=== PATIENT | female | born 1940 | race Caucasian/White ===

== ENCOUNTER 2019-10-31 09:20 | Inpatient (IN) ==
[2019-10-31] MEDS ORDERED: PANTOPRAZOLE 40 MG VIAL IV STA (09:46)
[2019-10-31] MEDS ORDERED: ONDANSETRON 4 MG/2 ML VIAL IV STA (09:46)
[2019-10-31] MEDS ORDERED: SODIUM CHLORIDE 0.9% 500 ML IV STA (09:46)
[2019-10-31] MEDS ORDERED: DICYCLOMINE 20 MG/2 ML AMP IM ONE (09:50)
[2019-10-31] MEDS ORDERED: METOCLOPRAMIDE 10 MG/2 ML VIAL IV STA (09:50)
[2019-10-31 09:57] LABS: Basophils # 0.1 10*3/uL (0.0-0.2); Basophils % 0.9 % (0.0-0.8); Eosinophils # 0.5 10*3/uL (0.0-0.87); Eosinophils % 6.8 % (0.00-10.9); Hematocrit 36.8 VOL% (35.7-47.0); Hemoglobin 11.7 GM/DL (12.0-16.0); Immature Granulocytes % 0.6 %; Immature Granulocytes Absolute 0.04 #; Lymphocytes % 28.6 % (21.3-54.2); Mean Corpuscular HGB Conc 31.8 GM/DL (32-36); Mean Corpuscular Volume 91.8 FL (87-102); Mean Platelet Volume 10.5 FL (9.6-12.0); Monocytes % 9.9 % (1.7-12.7); Neutrophils % 53.2 % (38.7-73.9); Platelet Count 297 T/CUMM (130-400); Red Blood Count 4.01 MC/CUMM (3.8-5.5); Red Cell Distribution Width 14.4 % (9.3-17.3); White Blood Count 6.9 T/CUMM (4-12)
[2019-10-31 10:10] LABS: INR 1.2; PT Patient Result 12.4 SECS (9.8-11.9); Partial Thromboplastin Time 25.5 SECS (23.9-33.8)
[2019-10-31 10:30] LABS: Alanine Aminotransferase 23 U/L (13-56); Albumin 3.5 G/DL (3.4-5.0); Alkaline Phosphatase 39 U/L (45-117); Amylase 737 U/L (25-115); Aspartate Amino Transferase 16 U/L (0-37); Blood Urea Nitrogen 23 MG/DL (7-18); Calcium 9.2 MG/DL (8.5-10.1); Estimated Glom Filtration Rate 57 ML/MIN; Ferritin 125.1 ng/ml (8-252); Glucose 179 MG/DL (74-106); Osmolality,Calculated 277.1 MOS/KG (273-304); Total Protein 7.3 G/DL (6.4-8.3); Troponin I < 0.015 NG/ML (0.00-0.045)
[2019-10-31 10:54] LABS: Apearance,Urine CLEAR (Clear); Bilirubin,Urine Negative (Negative); Blood, Urine Negative (Negative); Glucose,Urine (UA) Negative (Negative); Ketones,Urine Negative (Negative); Mucus,Urine Occasional /LPF (Occasional); Nitrite,Urine Negative (Negative); Protein,Urine Negative; RBC,Urine <1 /HPF (0-4); Urine Color Straw (Yellow); Urine Specific Gravity 1.011 (1.001-1.035); Urine Urobilinogen < 2.0 EU/DL (0.2-1.0)
[2019-10-31] MEDS ORDERED: DEXTROSE 50% 25 GM/50 ML VIAL IV PRN ×2 (11:03→21:08)
[2019-10-31] MEDS ORDERED: ONDANSETRON 4 MG/2 ML VIAL IV PRN (11:03)
[2019-10-31] MEDS ORDERED: GLUCAGON 1 MG VIAL IM PRN ×2 (11:03→21:08)
[2019-10-31] MEDS ORDERED: fentaNYL 100 MCG/2 ML VIAL IV PRN (11:08)
[2019-10-31] MEDS ORDERED: METOCLOPRAMIDE 10 MG/2 ML VIAL IV SCH (12:00)
[2019-10-31] MEDS: DEXTROSE 5% NACL 0.45% 1,000 ML IV SCH (13:07)
[2019-10-31] MEDS: INSULIN REGULAR 100 UNIT/ML SUBCUT SCH ×4 (13:14→21:24)
[2019-10-31 13:35] LABS: Calcium 8.8 MG/DL (8.5-10.1); Osmolality,Calculated 278.8 MOS/KG (273-304)
[2019-10-31] MEDS ORDERED: DENOSUMAB 60 MG/ML SYRINGE SUBCUT SCH (15:04)
[2019-10-31] MEDS ORDERED: MAGNESIUM SULF RIDER 2 GM in PREMIX 1 EACH IV ONE (15:46)
[2019-10-31] MEDS: METOCLOPRAMIDE 10 MG/2 ML VIAL IV SCH ×2 (16:30→21:33)
[2019-10-31] MEDS ORDERED: DOCUSATE SODIUM 100 MG CAPSULE PO PRN (21:12)
[2019-10-31] MEDS: INSULIN GLARGINE 100 UNIT/ML SUBCUT SCH (21:23)
[2019-10-31] MEDS: METOPROLOL TARTRATE 25 MG TABLET PO SCH (21:33)
[2019-10-31] MEDS: cefTRIAXone 500 MG in SYRINGE 1 EACH IV SCH (21:33)
[2019-11-01] MEDS: DEXTROSE 5% NACL 0.45% 1,000 ML IV SCH ×2 (00:02→07:38)
[2019-11-01] MEDS: METOCLOPRAMIDE 10 MG/2 ML VIAL IV SCH ×4 (03:55→21:31)
[2019-11-01 04:59] LABS: Basophils # 0.1 10*3/uL (0.0-0.2); Basophils % 0.7 % (0.0-0.8); Eosinophils # 0.6 10*3/uL (0.0-0.87); Eosinophils % 7.5 % (0.00-10.9); Hematocrit 33.4 VOL% (35.7-47.0); Hemoglobin 10.3 GM/DL (12.0-16.0); Immature Granulocytes Absolute 0.07 #; Lymphocytes # 1.8 10*3/uL (1.4-4.0); Lymphocytes % 24.1 % (21.3-54.2); Mean Corpuscular HGB Conc 30.8 GM/DL (32-36); Mean Corpuscular Volume 93.3 FL (87-102); Mean Platelet Volume 10.6 FL (9.6-12.0); Monocytes % 10.6 % (1.7-12.7); Neutrophils % 56.1 % (38.7-73.9); Platelet Count 265 T/CUMM (130-400); Red Blood Count 3.58 MC/CUMM (3.8-5.5); Red Cell Distribution Width 14.4 % (9.3-17.3); White Blood Count 7.3 T/CUMM (4-12)
[2019-11-01 05:32] LABS: Calcium 8.4 MG/DL (8.5-10.1); Osmolality,Calculated 274.1 MOS/KG (273-304)
[2019-11-01] MEDS: INSULIN REGULAR 100 UNIT/ML SUBCUT SCH ×3 (08:06→15:58)
[2019-11-01] MEDS: METOPROLOL TARTRATE 25 MG TABLET PO SCH ×2 (08:29→21:28)
[2019-11-01] MEDS: TIMOLOL 0.5% OPH SOLN 5 ML BOTTLE BOTH EYES SCH (08:29)
[2019-11-01] MEDS: SOLIFENACIN 5 MG TABLET PO SCH (08:30)
[2019-11-01] MEDS: ASPIRIN EC 81 MG TABLET PO SCH (08:30)
[2019-11-01] MEDS: PANTOPRAZOLE 40 MG VIAL IV SCH (08:40)
[2019-11-01] MEDS: methylPREDNISolone SOD SUC 40 MG/1 ML VIAL IV SCH ×2 (09:58→21:29)
[2019-11-01] MEDS: SODIUM CHLORIDE 0.9% 1,000 ML IV SCH ×2 (09:59→19:08)
[2019-11-01 15:15] LABS: Risk Ratio 3.58; VLDL CHOLESTEROL 21.2 MG/DL
[2019-11-01] MEDS: INSULIN GLARGINE 100 UNIT/ML SUBCUT SCH (21:28)
[2019-11-01] MEDS: cefTRIAXone 500 MG in SYRINGE 1 EACH IV SCH (21:32)
[2019-11-02] MEDS: SODIUM CHLORIDE 0.9% 1,000 ML IV SCH ×3 (02:47→16:39)
[2019-11-02 05:03] LABS: Basophils # 0.1 10*3/uL (0.0-0.2); Basophils % 0.6 % (0.0-0.8); Eosinophils # 0.1 10*3/uL (0.0-0.87); Eosinophils % 0.6 % (0.00-10.9); Hematocrit 34.2 VOL% (35.7-47.0); Hemoglobin 10.7 GM/DL (12.0-16.0); Immature Granulocytes % 0.4 %; Immature Granulocytes Absolute 0.04 #; Lymphocytes # 1.6 10*3/uL (1.4-4.0); Lymphocytes % 16.6 % (21.3-54.2); Mean Corpuscular HGB Conc 31.3 GM/DL (32-36); Mean Corpuscular Volume 92.9 FL (87-102); Mean Platelet Volume 10.8 FL (9.6-12.0); Monocytes % 6.6 % (1.7-12.7); Neutrophils % 75.2 % (38.7-73.9); Platelet Count 292 T/CUMM (130-400); Red Blood Count 3.68 MC/CUMM (3.8-5.5); Red Cell Distribution Width 14.4 % (9.3-17.3); White Blood Count 9.7 T/CUMM (4-12)
[2019-11-02] MEDS: METOCLOPRAMIDE 10 MG/2 ML VIAL IV SCH ×3 (05:27→15:32)
[2019-11-02 05:32] LABS: Calcium 8.6 MG/DL (8.5-10.1); Osmolality,Calculated 281.7 MOS/KG (273-304)
[2019-11-02] MEDS: ASPIRIN EC 81 MG TABLET PO SCH (08:21)
[2019-11-02] MEDS: INSULIN REGULAR 100 UNIT/ML SUBCUT SCH ×3 (08:21→16:38)
[2019-11-02] MEDS: METOPROLOL TARTRATE 25 MG TABLET PO SCH (08:21)
[2019-11-02] MEDS: SOLIFENACIN 5 MG TABLET PO SCH (08:22)
[2019-11-02] MEDS: TIMOLOL 0.5% OPH SOLN 5 ML BOTTLE BOTH EYES SCH (08:26)
[2019-11-02] MEDS: methylPREDNISolone SOD SUC 40 MG/1 ML VIAL IV SCH (08:27)
[2019-11-02] MEDS: PANTOPRAZOLE 40 MG VIAL IV SCH (08:27)
[2019-11-02] MEDS ORDERED: POTASSIUM CHLORIDE 20 MEQ TABLET PO ONE (14:59)
[2019-11-02] MEDS ORDERED: MAGNESIUM SULF RIDER 2 GM in PREMIX 1 EACH IV ONE (15:00)
[2019-11-02 16:08] VITALS: BP 167/66
[2019-11-03] MEDS ORDERED: GLIMEPIRIDE 2 MG TABLET PO SCH (08:00)
== END 2019-11-02 18:12 | disposition home or self-care (01) | DRG 440 ==
LOC: N.EDINP 09:20 → N.ED 09:20 → N.EDINP 14:57 → N.3E 15:14
PROVIDERS: ADMIT Internal Medicine; ATTEND Internal Medicine

== ENCOUNTER 2021-03-01 12:15 | Inpatient (IN) ==
[2021-03-01] MEDS ORDERED: SODIUM CHLORIDE 0.9% 1,000 ML IV STA (12:40)
[2021-03-01] MEDS ORDERED: hydrALAZINE 20 MG/1 ML VIAL IV STA ×2 (13:12→14:58)
[2021-03-01 13:17] LABS: Basophils % 0.4 % (0.0-0.8); Eosinophils # 0.1 10*3/uL (0.0-0.87); Eosinophils % 0.9 % (0.00-10.9); Hematocrit 41.4 VOL% (35.7-47.0); Hemoglobin 13.7 GM/DL (12.0-16.0); Immature Granulocytes % 0.3 %; Immature Granulocytes Absolute 0.02 #; Lymphocytes # 1.4 10*3/uL (1.4-4.0); Mean Corpuscular HGB Conc 33.1 GM/DL (32-36); Mean Corpuscular Volume 91.6 FL (87-102); Mean Platelet Volume 11.4 FL (9.6-12.0); Monocytes % 6.2 % (1.7-12.7); Neutrophils % 74.2 % (38.7-73.9); Platelet Count 168 T/CUMM (130-400); Red Blood Count 4.52 MC/CUMM (3.8-5.5); Red Cell Distribution Width 14.6 % (9.3-17.3); White Blood Count 7.6 T/CUMM (4-12)
[2021-03-01 13:45] LABS: Albumin 4.1 G/DL (3.4-5.0); Bilirubin,Total 0.5 MG/DL (0.20-1.00); Osmolality,Calculated 282.8 MOS/KG (273-304); Potassium 3.6 MMOL/L (3.5-5.1); Total Protein 7.3 G/DL (6.4-8.2)
[2021-03-01] MEDS ORDERED: MECLIZINE 25 MG TABLET PO STA (14:11)
[2021-03-01] MEDS ORDERED: ONDANSETRON 4 MG/2 ML VIAL ONE (14:20)
[2021-03-01] MEDS ORDERED: ONDANSETRON 4 MG/2 ML VIAL IV STA (14:21)
[2021-03-01] MEDS ORDERED: methylPREDNISolone SOD SUC 40 MG/1 ML VIAL IV STA (15:30)
[2021-03-01] MEDS ORDERED: GLUCAGON 1 MG VIAL IM PRN (15:39)
[2021-03-01] MEDS ORDERED: DEXTROSE 50% 25 GM/50 ML VIAL IV PRN ×2 (15:39→16:08)
[2021-03-01] MEDS ORDERED: ACETAMINOPHEN 325 MG TABLET PO PRN (15:39)
[2021-03-01] MEDS ORDERED: PROMETHAZINE 25 MG/1 ML VIAL IM STA (15:45)
[2021-03-01] MEDS: SODIUM CHLORIDE 0.9% 1,000 ML IV SCH (15:55)
[2021-03-01] MEDS: INSULIN REGULAR 100 UNIT/ML SUBCUT SCH ×2 (17:18→20:44)
[2021-03-01] MEDS: INSULIN GLARGINE 100 UNIT/ML SUBCUT SCH (20:44)
[2021-03-01] MEDS: METOPROLOL TARTRATE 25 MG TABLET PO SCH (20:44)
[2021-03-01] MEDS: GABAPENTIN 300 MG CAPSULE PO SCH (21:00)
[2021-03-01] MEDS: DOCUSATE SODIUM 100 MG CAPSULE PO SCH (21:00)
[2021-03-01] MEDS: glipiZIDE 10 MG TABLET PO SCH (21:00)
[2021-03-01] MEDS: ONDANSETRON 4 MG/2 ML VIAL IV PRN (21:28)
[2021-03-02] MEDS: ONDANSETRON 4 MG/2 ML VIAL IV PRN (04:51)
[2021-03-02] MEDS: SODIUM CHLORIDE 0.9% 1,000 ML IV SCH ×2 (04:51→18:31)
[2021-03-02 05:45] LABS: Calcium 8.2 MG/DL (8.5-10.1); Osmolality,Calculated 285.4 MOS/KG (273-304); Potassium 3.5 MMOL/L (3.5-5.1)
[2021-03-02] MEDS: METOPROLOL TARTRATE 25 MG TABLET PO SCH ×2 (10:57→20:36)
[2021-03-02] MEDS: GABAPENTIN 300 MG CAPSULE PO SCH ×3 (10:59→20:36)
[2021-03-02] MEDS: PANTOPRAZOLE 40 MG TABLET PO SCH (10:59)
[2021-03-02] MEDS: SOLIFENACIN 5 MG TABLET PO SCH (10:59)
[2021-03-02] MEDS: INSULIN REGULAR 100 UNIT/ML SUBCUT SCH ×4 (11:00→20:40)
[2021-03-02] MEDS: DOCUSATE SODIUM 100 MG CAPSULE PO SCH ×2 (11:00→20:40)
[2021-03-02] MEDS: glipiZIDE 10 MG TABLET PO SCH ×2 (11:00→20:35)
[2021-03-02] MEDS: hydrALAZINE 25 MG TABLET PO SCH ×2 (12:23→20:35)
[2021-03-02] MEDS: amLODIPine 5 MG TABLET PO SCH (12:23)
[2021-03-02] MEDS ORDERED: MECLIZINE 25 MG TABLET PO PRN (13:48)
[2021-03-02] MEDS: KETOROLAC 15 MG/1 ML VIAL IV SCH ×2 (14:50→20:35)
[2021-03-02] MEDS: MECLIZINE 25 MG TABLET PO SCH ×2 (14:50→20:36)
[2021-03-02] MEDS: hydrALAZINE 20 MG/1 ML VIAL IV PRN (14:51)
[2021-03-02] MEDS: cefTRIAXone 1,000 MG in SODIUM CHLORIDE 0.9% 100 ML IV SCH (18:31)
[2021-03-02] MEDS: INSULIN GLARGINE 100 UNIT/ML SUBCUT SCH (20:36)
[2021-03-03] MEDS: KETOROLAC 15 MG/1 ML VIAL IV SCH ×4 (02:38→21:03)
[2021-03-03 04:50] LABS: Basophils % 0.4 % (0.0-0.8); Eosinophils % 0.2 % (0.00-10.9); Hematocrit 40.3 VOL% (35.7-47.0); Hemoglobin 13.1 GM/DL (12.0-16.0); Immature Granulocytes % 0.4 %; Immature Granulocytes Absolute 0.04 #; Lymphocytes # 1.8 10*3/uL (1.4-4.0); Lymphocytes % 19.4 % (21.3-54.2); Mean Corpuscular HGB Conc 32.5 GM/DL (32-36); Mean Corpuscular Volume 92.9 FL (87-102); Mean Platelet Volume 12.2 FL (9.6-12.0); Monocytes % 11.5 % (1.7-12.7); Neutrophils % 68.1 % (38.7-73.9); Platelet Count 181 T/CUMM (130-400); Red Blood Count 4.34 MC/CUMM (3.8-5.5); White Blood Count 9.1 T/CUMM (4-12)
[2021-03-03] MEDS: SODIUM CHLORIDE 0.9% 1,000 ML IV SCH ×3 (05:03→18:33)
[2021-03-03 05:46] LABS: Bilirubin,Total 0.5 MG/DL (0.20-1.00); Calcium 8.2 MG/DL (8.5-10.1); Osmolality,Calculated 273.1 MOS/KG (273-304); Potassium 4.1 MMOL/L (3.5-5.1); Total Protein 6.6 G/DL (6.4-8.2)
[2021-03-03] MEDS: INSULIN REGULAR 100 UNIT/ML SUBCUT SCH ×4 (08:59→21:04)
[2021-03-03] MEDS: FENOFIBRATE 160 MG TABLET PO SCH (08:59)
[2021-03-03] MEDS: amLODIPine 5 MG TABLET PO SCH (09:00)
[2021-03-03] MEDS: PANTOPRAZOLE 40 MG TABLET PO SCH (09:00)
[2021-03-03] MEDS: MECLIZINE 25 MG TABLET PO SCH ×3 (09:00→21:01)
[2021-03-03] MEDS: hydrALAZINE 25 MG TABLET PO SCH (09:00)
[2021-03-03] MEDS: POTASSIUM CHLORIDE 20 MEQ TABLET PO SCH (09:00)
[2021-03-03] MEDS: glipiZIDE 10 MG TABLET PO SCH ×2 (09:00→21:02)
[2021-03-03] MEDS: METOPROLOL TARTRATE 25 MG TABLET PO SCH ×2 (09:00→21:02)
[2021-03-03] MEDS: SOLIFENACIN 5 MG TABLET PO SCH (09:00)
[2021-03-03] MEDS: DOCUSATE SODIUM 100 MG CAPSULE PO SCH ×2 (09:00→21:01)
[2021-03-03] MEDS: GABAPENTIN 300 MG CAPSULE PO SCH ×3 (09:00→21:02)
[2021-03-03] MEDS: TIMOLOL 0.5% OPH SOLN 5 ML BOTTLE BOTH EYES SCH (09:45)
[2021-03-03] MEDS: hydrALAZINE 20 MG/1 ML VIAL IV PRN ×2 (09:46→16:04)
[2021-03-03] MEDS: ONDANSETRON 4 MG/2 ML VIAL IV PRN ×2 (09:48→16:05)
[2021-03-03] MEDS ORDERED: DOCUSATE SODIUM 100 MG CAPSULE PO PRN (12:22)
[2021-03-03] MEDS ORDERED: FUROSEMIDE 40 MG/4 ML VIAL IV ONE (13:30)
[2021-03-03] MEDS: ASPIRIN EC 81 MG TABLET PO SCH (14:14)
[2021-03-03] MEDS: methylPREDNISolone 4 MG TABLET PO SCH ×2 (18:32→21:05)
[2021-03-03] MEDS: cefTRIAXone 1,000 MG in SODIUM CHLORIDE 0.9% 100 ML IV SCH (21:01)
[2021-03-03] MEDS: MAGNESIUM OXIDE 400 MG TABLET PO SCH (21:01)
[2021-03-03] MEDS: INSULIN GLARGINE 100 UNIT/ML SUBCUT SCH (21:04)
[2021-03-04] MEDS: KETOROLAC 15 MG/1 ML VIAL IV SCH ×4 (03:33→21:44)
[2021-03-04 06:46] LABS: Albumin 3.2 G/DL (3.4-5.0); Bilirubin,Total 0.7 MG/DL (0.20-1.00); Calcium 8.4 MG/DL (8.5-10.1); Osmolality,Calculated 289.3 MOS/KG (273-304); Potassium 3.1 MMOL/L (3.5-5.1); Risk Ratio 2.41; Total Protein 6.5 G/DL (6.4-8.2); VLDL Cholesterol 12.8 MG/DL
[2021-03-04] MEDS: SODIUM CHLORIDE 0.9% 1,000 ML IV SCH ×2 (07:38→21:46)
[2021-03-04] MEDS: INSULIN REGULAR 100 UNIT/ML SUBCUT SCH ×4 (08:33→21:50)
[2021-03-04] MEDS: ASPIRIN EC 81 MG TABLET PO SCH (08:34)
[2021-03-04] MEDS: glipiZIDE 10 MG TABLET PO SCH ×2 (08:34→21:49)
[2021-03-04] MEDS: FENOFIBRATE 160 MG TABLET PO SCH (08:34)
[2021-03-04] MEDS: MAGNESIUM OXIDE 400 MG TABLET PO SCH ×2 (08:34→21:50)
[2021-03-04] MEDS: DOCUSATE SODIUM 100 MG CAPSULE PO SCH ×2 (08:34→23:31)
[2021-03-04] MEDS: FUROSEMIDE 40 MG/4 ML VIAL IV SCH (08:34)
[2021-03-04] MEDS: MECLIZINE 25 MG TABLET PO SCH ×3 (08:35→21:50)
[2021-03-04] MEDS: SOLIFENACIN 5 MG TABLET PO SCH (08:35)
[2021-03-04] MEDS: PANTOPRAZOLE 40 MG TABLET PO SCH (08:35)
[2021-03-04] MEDS: GABAPENTIN 300 MG CAPSULE PO SCH ×3 (08:35→21:49)
[2021-03-04] MEDS: POTASSIUM CHLORIDE 20 MEQ TABLET PO SCH (08:35)
[2021-03-04] MEDS: amLODIPine 5 MG TABLET PO SCH (08:35)
[2021-03-04] MEDS: methylPREDNISolone 4 MG TABLET PO SCH ×4 (08:36→21:48)
[2021-03-04] MEDS: TIMOLOL 0.5% OPH SOLN 5 ML BOTTLE BOTH EYES SCH (08:36)
[2021-03-04] MEDS: METOPROLOL TARTRATE 25 MG TABLET PO SCH ×2 (08:37→21:49)
[2021-03-04] MEDS ORDERED: POTASSIUM CHLORIDE RIDER 10 MEQ/100 ML PREMIX IV PRN (12:32)
[2021-03-04] MEDS: POTASSIUM CHLORIDE 20 MEQ TABLET PO PRN ×3 (13:05→21:47)
[2021-03-04] MEDS: cefTRIAXone 1,000 MG in SODIUM CHLORIDE 0.9% 100 ML IV SCH (21:42)
[2021-03-04] MEDS: INSULIN GLARGINE 100 UNIT/ML SUBCUT SCH (21:51)
[2021-03-05] MEDS: KETOROLAC 15 MG/1 ML VIAL IV SCH ×4 (04:05→22:01)
[2021-03-05] MEDS: INSULIN REGULAR 100 UNIT/ML SUBCUT SCH ×4 (08:01→22:02)
[2021-03-05] MEDS ORDERED: DONEPEZIL 5 MG TABLET PO SCH (09:00)
[2021-03-05] MEDS: GABAPENTIN 300 MG CAPSULE PO SCH ×3 (09:48→22:00)
[2021-03-05] MEDS: methylPREDNISolone 4 MG TABLET PO SCH ×4 (09:48→21:59)
[2021-03-05] MEDS: DOCUSATE SODIUM 100 MG CAPSULE PO SCH ×2 (09:49→21:59)
[2021-03-05] MEDS: METOPROLOL TARTRATE 25 MG TABLET PO SCH ×2 (09:49→22:00)
[2021-03-05] MEDS: POTASSIUM CHLORIDE 20 MEQ TABLET PO SCH (09:49)
[2021-03-05] MEDS: ASPIRIN EC 81 MG TABLET PO SCH (09:49)
[2021-03-05] MEDS: PANTOPRAZOLE 40 MG TABLET PO SCH (09:49)
[2021-03-05] MEDS: SOLIFENACIN 5 MG TABLET PO SCH (09:49)
[2021-03-05] MEDS: MECLIZINE 25 MG TABLET PO SCH ×3 (09:49→22:00)
[2021-03-05] MEDS: MAGNESIUM OXIDE 400 MG TABLET PO SCH ×2 (09:49→22:00)
[2021-03-05] MEDS: amLODIPine 5 MG TABLET PO SCH (09:49)
[2021-03-05] MEDS: FENOFIBRATE 160 MG TABLET PO SCH (09:49)
[2021-03-05] MEDS: FUROSEMIDE 40 MG/4 ML VIAL IV SCH (09:50)
[2021-03-05] MEDS: glipiZIDE 10 MG TABLET PO SCH ×2 (09:50→22:01)
[2021-03-05] MEDS: TIMOLOL 0.5% OPH SOLN 5 ML BOTTLE BOTH EYES SCH (09:50)
[2021-03-05] MEDS: SODIUM CHLORIDE 0.9% 1,000 ML IV SCH ×2 (12:51→13:00)
[2021-03-05] MEDS: cefTRIAXone 1,000 MG in SODIUM CHLORIDE 0.9% 100 ML IV SCH (21:57)
[2021-03-05] MEDS: INSULIN GLARGINE 100 UNIT/ML SUBCUT SCH (22:02)
[2021-03-06] MEDS: KETOROLAC 15 MG/1 ML VIAL IV SCH ×2 (02:59→09:12)
[2021-03-06] MEDS: SODIUM CHLORIDE 0.9% 1,000 ML IV SCH (04:04)
[2021-03-06 05:45] LABS: Basophils # 0.1 10*3/uL (0.0-0.2); Basophils % 0.9 % (0.0-0.8); Eosinophils # 0.3 10*3/uL (0.0-0.87); Eosinophils % 3.9 % (0.00-10.9); Hematocrit 44.3 VOL% (35.7-47.0); Hemoglobin 14.1 GM/DL (12.0-16.0); Immature Granulocytes % 0.4 %; Immature Granulocytes Absolute 0.03 #; Lymphocytes # 2.1 10*3/uL (1.4-4.0); Lymphocytes % 29.9 % (21.3-54.2); Mean Corpuscular HGB Conc 31.8 GM/DL (32-36); Mean Corpuscular Volume 92.3 FL (87-102); Monocytes % 13.5 % (1.7-12.7); Neutrophils % 51.4 % (38.7-73.9); Platelet Count 205 T/CUMM (130-400); Red Cell Distribution Width 14.9 % (9.3-17.3)
[2021-03-06 05:55] LABS: Calcium 8.8 MG/DL (8.5-10.1); Osmolality,Calculated 282.7 MOS/KG (273-304)
[2021-03-06] MEDS: INSULIN REGULAR 100 UNIT/ML SUBCUT SCH ×2 (07:09→12:51)
[2021-03-06] MEDS ORDERED: GLIMEPIRIDE 2 MG TABLET PO SCH (08:00)
[2021-03-06 08:53] VITALS: BP 177/80
[2021-03-06] MEDS ORDERED: metFORMIN 500 MG TABLET PO SCH (09:00)
[2021-03-06] MEDS ORDERED: LORATADINE 10 MG TABLET PO SCH (09:00)
[2021-03-06] MEDS ORDERED: OXYBUTYNIN 5 MG TABLET PO SCH (09:00)
[2021-03-06] MEDS ORDERED: cloNIDine 0.1 MG TABLET PO SCH (09:00)
[2021-03-06] MEDS ORDERED: LOSARTAN 25 MG TABLET PO SCH (09:00)
[2021-03-06] MEDS ORDERED: DOXAZOSIN 4 MG TABLET PO SCH (09:00)
[2021-03-06] MEDS: TIMOLOL 0.5% OPH SOLN 5 ML BOTTLE BOTH EYES SCH (09:10)
[2021-03-06] MEDS: amLODIPine 5 MG TABLET PO SCH (09:10)
[2021-03-06] MEDS: SOLIFENACIN 5 MG TABLET PO SCH (09:10)
[2021-03-06] MEDS: MAGNESIUM OXIDE 400 MG TABLET PO SCH (09:10)
[2021-03-06] MEDS: GABAPENTIN 300 MG CAPSULE PO SCH (09:10)
[2021-03-06] MEDS: DOCUSATE SODIUM 100 MG CAPSULE PO SCH (09:10)
[2021-03-06] MEDS: ASPIRIN EC 81 MG TABLET PO SCH (09:10)
[2021-03-06] MEDS: PANTOPRAZOLE 40 MG TABLET PO SCH (09:10)
[2021-03-06] MEDS: methylPREDNISolone 4 MG TABLET PO SCH ×2 (09:11→12:52)
[2021-03-06] MEDS: MECLIZINE 25 MG TABLET PO SCH (09:11)
[2021-03-06] MEDS: glipiZIDE 10 MG TABLET PO SCH (09:11)
[2021-03-06] MEDS: POTASSIUM CHLORIDE 20 MEQ TABLET PO SCH (09:11)
[2021-03-06] MEDS: METOPROLOL TARTRATE 25 MG TABLET PO SCH (09:11)
[2021-03-06] MEDS: FENOFIBRATE 160 MG TABLET PO SCH (09:11)
[2021-03-06] MEDS: FUROSEMIDE 40 MG/4 ML VIAL IV SCH (09:12)
== END 2021-03-06 15:04 | disposition home or self-care (01) | DRG 149 ==
LOC: EDUNIT# → N.ED 12:15 → N.EDINP 12:15 → N.5E 17:39
PROVIDERS: ADMIT Internal Medicine; ATTEND Internal Medicine